=== PATIENT | female | born 1940 | race Caucasian/White ===

== ENCOUNTER 2018-11-29 09:47 | Day surgery (SDC) | payer OTHER ==
--- NOTE | 2018-11-28 10:48 | HP ---
HISTORY AND PHYSICAL: ADDENDUM: The patient is scheduled for surgery on 11/29/18. ALLERGIES: BACTRIM, LEVAQUIN, OXYBUTYNIN, PENICILLIN, SULFA, and VANCOMYCIN. RENETTA MIGUEL, MONOGRAM AND LETTER PASTER [id number]/[facility] #: [id number]
--- NOTE | 2018-11-28 11:22 | HP ---
CC: Dr. Stone* HISTORY AND PHYSICAL: DATE OF ADMISSION: 11/29/18 She is scheduled for surgery at [facility] for left arm arteriovenous anastomosis with graft. ATTENDING PHYSICIAN: Dr. Stone* (dictated by Nita Miguel NP). CHIEF COMPLAINT: End-stage renal failure. HISTORY OF PRESENT ILLNESS: Daniella Adam is a 77-year-old female who was referred from the [facility] in [place] for end-stage renal disease. She has been undergoing dialysis in [place]. She lives in a residential [facility]. She does have a temporary catheter in the right internal jugular. Her daughter is her power of trade mark attorney. Dr. Stone has discussed the nature and course of a right arm arteriovenous graft. It was felt that she would be the best candidate for a Wilson-Krunal arteriovenous graft from the brachial artery to the brachial vein towards the axilla. The patient is somewhat confused and her daughter will be contacted the day of the procedure to sign consent for surgery and anesthesia. PAST MEDICAL HISTORY: 1. Stage 5 renal disease. 2. Heart failure. 3. Chronic anemia. 4. Type 2 diabetes. 5. Dementia. 6. COPD. 7. Gastroesophageal reflux. MEDICATIONS: 1. Albuterol sulfate 0.083% inhaler nebulizer p.r.n. 2. Amlodipine besylate 10 mg p.o. daily. 3. She takes a daily 81 mg low-dose aspirin. 4. Atorvastatin calcium 10 mg daily. 5. Calcium acetate 667 mg p.o. daily for 90 days. 6. Famotidine 20 mg p.o. daily. 7. Hydralazine HCl 50 mg p.o. t.i.d. Sunday, , Sunday, Sunday and p.o. b.i.d. on Sunday, Sunday, Sunday. 8. Ipratropium bromide and albuterol sulfate inhaler. 9. Isosorbide dinitrate 20 mg p.o. t.i.d. Sunday, , Sunday, Sunday and p.o. b.i.d. on Sunday, Sunday, Sunday. 10. Metoprolol succinate ER 50 mg p.o. daily. 11. She takes a multivitamin, Nephro-Jessica 0.8 mg p.o. daily and Nephro-Jessica Rx 1 mg p.o. daily. 12. Senna-docusate sodium 8.6-50 mg p.o. b.i.d. p.r.n. 13. Trazodone HCl 50 mg p.o. q.h.s. 14. Tylenol 325 mg p.r.n. 15. Ventolin HFA 108 mcg/act inhalation aerosol p.r.n. ALLERGIES: BACTRIM, LEVAQUIN, OXYBUTYNIN, PENICILLIN, SULFA, and VANCOMYCIN. SOCIAL HISTORY: The patient lives in the [facility]. She does have a past history of tobacco use. REVIEW OF SYSTEMS: As noted in the past medical history. PHYSICAL EXAMINATION GENERAL: Daniella Adam is a 77-year-old female, comes to the office in a wheelchair, but uses a walker at the facility where she lives. VITAL SIGNS: Height 5 feet 2 inches, weight 132, blood pressure 107/44, BMI 24.1, pulse is 50, respirations 16. HEENT: Within normal limits. NECK: The patient has a right internal jugular dialysis catheter. CHEST: Lungs clear. HEART: S1 and S2. Regular rate and rhythm. No extra heart sounds. No murmurs , clicks, or rubs. ABDOMEN: Soft and nontender. Positive bowel sounds. Positive tympany. EXTREMITIES: +2 symmetrical radial pulses. IMPRESSION: End-stage renal disease, stage 5 with temporary dialysis catheter. PLAN: Same-day surgery admission to Dr. Stone's service for left arm arteriovenous anastomosis with graft. NITA MIGUEL NP [id number]/[facility] #: [id number]/[facility] #: [id number] NEAL
[~2018-11-29 09:47] MED LIST: Buffered Lidocaine 1% SYRIN* 1 ML/SYRINGE INTRADERM ONE; Lactated Ringers 1000 ML Bag* 1,000 ML IV SCH
[2018-11-29] MEDS ORDERED: Clindamycin 900 MG IVPREMIX(* 900 MG/50 ML SDV IV ONE (11:33)
[2018-11-29] MEDS ORDERED: Lidocaine 2% PF * 5 ML VIAL ONE (12:29)
[2018-11-29] MEDS ORDERED: Propofol* 10 MG/ML 20 ML BTL ONE (12:29)
[2018-11-29] MEDS ORDERED: Phenylephrine 10 MG/ML VIAL* 1 ML VIAL ONE (12:32)
[2018-11-29] MEDS ORDERED: Heparin DIALYSIS ONLY(*) 1,000 UNITS/ML VIAL ONE ×2 (12:36→12:50)
[2018-11-29] MEDS ORDERED: Lidocaine 1% INJ* 10 MG/ML 30 ML SDV ONE (12:37)
[2018-11-29] MEDS ORDERED: Bupivacaine 0.25% W/EPI* 10 ML SDV ONE (12:37)
[2018-11-29] MEDS ORDERED: Heparin 2 UNITS/ML IVPREMIX* 2,000 UNIT/1,000 ML BAG IV ONE (12:40)
[2018-11-29] MEDS ORDERED: Naloxone* 0.4 MG/ML 1 ML VIAL IV PRN (13:52)
[2018-11-29] MEDS ORDERED: Metoclopramide IV* 5 MG/ML 2 ML VIAL IV PRN (13:52)
[2018-11-29] MEDS ORDERED: fentaNYL* 50 MCG/ML 2 ML VIAL (100 MCG VIAL) IV PRN (13:52)
[2018-11-29] MEDS ORDERED: Dexamethasone IV* 4 MG/ML 1 ML (4 MG) ONE (14:59)
[2018-11-29] MEDS ORDERED: Ondansetron INJ* 2 MG/ML VIAL ONE (14:59)
[2018-11-29] MEDS ORDERED: oxyCODONE TAB* 5 MG TAB ONE ×2 (15:37→16:09)
[2018-11-29] MEDS: oxyCODONE TAB* 5 MG TAB PO PRN ×2 (15:38→16:11)
[2018-11-29 16:11] VITALS: BP 136/54
--- NOTE | 2018-11-30 00:04 | OP ---
OPERATIVE REPORT: DATE OF OPERATION: 11/29/18 DATE OF : 44 SURGEON: Gen Stone MD MAINFRAME APPLICATIONS DEVELOPER: Nita Mcconnell NP ANESTHESIA: General. PRE-OP DIAGNOSIS: End-stage renal disease. POST-OP DIAGNOSIS: End-stage renal disease. OPERATIVE PROCEDURE: Placement of arteriovenous graft (tapered Salisbury-Krunal Propaten). ESTIMATED BLOOD LOSS: Approximately 20 cc. DESCRIPTION OF PROCEDURE: The patient was taken to the procedure room. She was placed in the supine position after proper identification of the patient's site of surgery and we then [facility]. The patient was prepped and draped in the usual sterile fashio n exposing the left arm. After this was done, proper time-out was performed and we then proceeded to infiltrate lidocaine 1% on the medial aspect of the upper arm. A transverse incision was made in thi s area. The incision was carried down through the skin, subcutaneous tissue, fascia was opened and w e then proceeded to explore until the brachial vein was identified. This was then encircled in vesse l loops proximally and distally and after this was done, another incision was made right above the el bow. The incision was carried down through the skin, subcutaneous tissue. Bleeders were controlled b y electrocoagulation. The neurovascular bundle was identified in this area. The brachial artery was then exposed and this was encircled in vessel loops proximally and distally and after this was done, we then proceeded to map the tunnel in a curved shape going from the lower incision at the elbow tow ards the upper incision, towards the axilla with the graft going on the outside. The 4 mm tapers tow ards the artery and 6 mm to the venous side. After the mapping had been done and the tunnel was infi ltrated with Marcaine 0.25% and after this was done, we then proceeded to use a curved tunneler. Thi s was then introduced from the arterial incision in the lower part towards the venous incision in the upper part and after this was completed, we then proceeded to attach the arterial end of the graft t o the tip of the tunneler. It was then pulled back into the arterial area. The shaft of the tunnele r was then removed. We then proceeded to irrigate the graft with heparinized saline. The venous end of the graft was then cut with curved Zuniga's and after this was done, the patient received heparin 3 000 units and 5 minutes later, the vein was cross-clamped proximally and distally. A venotomy was the n performed with an 11 blade and extended with Pedraza scissors. After this was done, an end-to-side an astomosis was done with a parachute technique using 6-0 Prolene suture. After this was completed and the anastomosis was completed, we then proceeded to release the cross-clamp and proceeded to irrigat e from the arterial end of the graft with heparinized saline. Excellent flow was noted. We then pro ceeded to cross-clamp the graft and then we fashioned for the arterial anastomosis, a transverse inci maikel on the 4 mm end of the graft. After this was done, we then proceeded to cross-clamp the brachia l artery proximally and distally. An arteriotomy was performed with an #11 blade, which was then ext ended with Pedraza scissors. We then proceeded to perform an end-to-side anastomosis using 6-0 Prolene in a parachute technique and once this was completed, the venous clamp was released. The arterial c lamp distally was released and then the proximal. No bleeding was noted from the anastomosis. Good flow was noted through the graft. There was a palpable pulse in the radial and good capillary refill. There was a good thrill in the graft. No bleeding was noted at the site of the incisions. We then proceeded to close the incisions with 4-0 Vicryl for the subcutaneous tissue and the skin with a sub cuticular closure using 5-0 Monocryl and Steri-Strips. The patient tolerated the procedure well and she was taken in good condition to recovery room. [id number]/[facility] #: [id number]
== END 2018-11-29 17:02 | disposition home or self-care (01) ==
LOC: OR 09:47
PROVIDERS: ATTEND Surgery
DX: N18.6 End stage renal disease (principal); Z99.2 Dependence on renal dialysis; Z88.0 Allergy status to penicillin; Z88.8 Allergy status to other drugs, medicaments and biological substances; E11.21 Type 2 diabetes mellitus with diabetic nephropathy; J44.9 Chronic obstructive pulmonary disease, unspecified; D64.89 Other specified anemias; Z99.81 Dependence on supplemental oxygen
CPT/HCPCS: A9270-GY; C1768; J1100; J1644; J2405; J2704

== ENCOUNTER 2019-01-07 13:18 | Observation (INO) | payer OTHER, MEDICARE, MEDICAID ==
[2019-01-07] MEDS ORDERED: Buffered Lidocaine 1% SYRIN* 1 ML/SYRINGE INTRADERM ONE (13:40)
--- NOTE | 2019-01-07 13:44 | HP ---
HISTORY AND PHYSICAL: DATE OF ADMISSION: 01/07/19 CHIEF COMPLAINT: Infected left brachial graft. HISTORY OF PRESENT ILLNESS: The patient is a 78-year-old female, resident of a residential home in a [facility], who has a history of dementia and has endstage renal disease, the patient had a left brachial graft for hemodialysis on 11/29/18, the patient had a uneventful recovery; however, while she was in the skilled nursing started digging into the incision on the left arm. The incision became infected, which required drainage. The cultures reveal Staphylococcus aureus sensitive to cephalosporin. She was treated with oral antibiotics, and had a good response. The incision healed and 3 days ago, she was seen postoperatively as a followup and she was doing well. Today, she was brought in with severe left upper arm pain around the graft area with edema and tenderness to touch. Pain in the left forearm, but no edema. The patient has the graft being patent on examination and has again severe pain at the site of the graft in the entire left arm. Likely, this is a persistent recurrent infection of the left brachial graft. At this point, the best treatment option is to remove the infected graft and treat the patient with antibiotics. PAST MEDICAL HISTORY: The patient's past medical history is remarkable for endstage renal disease, heart failure, chronic anemia, type 2 diabetes, dementia , COPD, gastroesophageal reflux disease. MEDICATIONS: The patient's current medications include: 1. Albuterol inhaler 1 to 2 puffs as needed. 2. Amlodipine besylate 10 mg p.o. daily. 3. Aspirin 81 mg p.o. daily. 4. Atorvastatin 10 mg p.o. daily. 5. Calcium Acetate 667 mg p.o. every 90 days. 6. Famotidine 20 mg p.o. daily. 7. Hydralazine 50 mg p.o. t.i.d., Sunday, , Sunday and Sunday, and p.o. b.i.d. on Sunday, Sunday and Sunday. 8. Ipratropium bromide and albuterol inhaler as needed. 9. Isosorbide dinitrate 20 mg p.o. t.i.d. 10. Metoprolol ER 50 mg p.o. q.d. 11. She takes multivitamins, Nephro-Jessica 0.8 mg p.o. q.d. 12. Senna/docusate sodium 8.6/50 mg p.o. b.i.d. 13. Trazodone 50 mg p.o. q.h.s. 14. Tylenol 325 mg p.o. as needed. 15. Ventolin HFA 108 mcg aerosol as needed ALLERGIES: The patient has allergy history to BACTRIM, LEVAQUIN, OXYBUTYNIN, PENICILLIN, SULFA and VANCOMYCIN. SOCIAL HISTORY: The patient lives in a [facility]. PHYSICAL EXAMINATION GENERAL: The patient is alert and oriented in terms of her medical condition, but she has an underlying dementia. She states that she started to have pain today in the left arm, she had none yesterday. VITAL SIGNS: Height 62 inches, weight 132 pounds, blood pressure 98/61, pulse of 80, respirations 18. HEAD AND NECK: There is a dialysis catheter on the right internal jugular. LUNGS: Clear to auscultation bilaterally. HEART: Regular. ABDOMEN: Soft without any organomegaly. EXTREMITIES: The right upper arm is unremarkable. The left upper arm reveals edema around the graft with tenderness around the graft. Pain throughout the arm and decreased pulses distally in the left wrist. The most extreme tenderness is precisely around the graft area, where the infected incision was present. The lower extremities are essentially unremarkable. No edema. Excellent palpable pulses. DIAGNOSTIC IMPRESSION: Left brachial graft infection. After trying a course of antibiotics in the recurrence of pain at the level of the graft, the best option is to remove the brachial graft as this is acting as a foreign body. I have spoken to the daughter who is the power of family law attorney, her name is Cammie Kessler and I have explained the condition of her mother and she agrees to take her to surgery to remove the brachial graft. [id number]/[facility] #: [id number] MTDD
[2019-01-07] MEDS ORDERED: NS 0.45% 1000 ML BAG* 1,000 ML IV SCH (14:00)
[2019-01-07] MEDS ORDERED: fentaNYL* 50 MCG/ML 2 ML VIAL (100 MCG VIAL) ONE ×2 (14:10→15:55)
[2019-01-07] MEDS ORDERED: Midazolam* 1 MG/ML 2 ML VIAL (2 MG) ONE (14:11)
[2019-01-07] MEDS ORDERED: Morphine 4 MG/ML VIAL (1 ml) 4 MG/ML VIAL ONE (15:10)
[2019-01-07] MEDS ORDERED: Iohexol 180 (CONTRAST) 10 ML SDV IV ONE (15:31)
[2019-01-07] MEDS ORDERED: Lidocaine 1% INJ* 10 MG/ML 30 ML SDV ONE (15:31)
[2019-01-07] MEDS ORDERED: ceFAZolin 1 GM ADVAN(*) 1 GM ADDV.VIAL IVPB ONE (15:37)
[2019-01-07] MEDS ORDERED: Famotidine IV* 10 MG/ML 2 ML (20 mg) ONE (15:40)
[2019-01-07] MEDS ORDERED: Heparin 2 UNITS/ML IVPREMIX* 0 ML IV ONE (15:48)
[2019-01-07] MEDS ORDERED: Propofol* 10 MG/ML 20 ML BTL ONE (15:55)
[2019-01-07] MEDS ORDERED: Naloxone* 0.4 MG/ML 1 ML VIAL IV PRN (16:55)
[2019-01-07] MEDS ORDERED: Ondansetron INJ* 2 MG/ML VIAL IV PRN (16:55)
[2019-01-07] MEDS ORDERED: fentaNYL* 50 MCG/ML 2 ML VIAL (100 MCG VIAL) IV PRN (16:55)
[2019-01-07] MEDS ORDERED: Acetaminophen TAB* 325 MG PO PRN (19:02)
[2019-01-07] MEDS ORDERED: Morphine 4 MG/ML VIAL (1 ml) 4 MG/ML VIAL IV PRN (19:02)
[2019-01-07] MEDS ORDERED: Albuterol HFA INHALER* 8 gm MDI INH PRN (19:07)
[2019-01-07] MEDS: Metoprolol Tartrate TAB* 50 mg PO SCH (20:10)
[2019-01-07] MEDS: Isosorbide Dinitrate TAB* 20 MG PO SCH (20:10)
--- NOTE | 2019-01-07 22:07 | OP ---
DATE OF OPERATION: 01/07/19 - ROOM #349 DATE OF : 44 SURGEON: Gen Stone MD TOWER LOADER OPERATOR: Nita Mcconnell NP ANESTHESIA: General. PRE-OP DIAGNOSIS: Infected left brachial graft. POST-OP DIAGNOSIS: Infected left brachial graft. OPERATIVE PROCEDURE: Removal of infected infected brachial graft. ESTIMATED BLOOD LOSS: Less than 20 cc. INDICATIONS: The patient is a 78-year-old female with dementia, resident of a [facility] facility, who has end-stage renal disease, and on , underwent placement of the left brachial graft. The procedure was uneventful. In the postoperative period, 2 weeks after the operation, the patient was digging into the incision, opening the wound, and the patient developed Staphylococcus aureus infection in the area. This was treated by drainage and antibiotics. The patient responded very well and the incision started to heal. The incision in the opening completely healed and was doing well until today when she started complaining of severe pain and around the area of the graft with redness and edema. The pain was a 10/10 and when she was seen in the office, she was then immediately sent to the hospital for direct admission for removal of brachial graft, as the patient had then recurred with the same infection having a foreign body, infected and the degree of pain, it was felt the graft required to be removed. DESCRIPTION OF PROCEDURE: The patient was taken to the operating room. Proper identification of the patient and site of surgery was done. Consent for surgery was obtained from her daughter, who gave consent over the phone and was completely informed about the procedure, indications, and potential complications. Once the patient was on the general anesthesia, she was prepped and draped in the usual sterile fashion. Lidocaine 1% was used to infiltrate at the level of the lower incision of the graft in the medial aspect of the arm. The incision was carried down through skin, subcutaneous tissue. The tissues were edematous. The graft was easily found, which was not attached to the tissues and an indication that there was an active infection. No pus was found in the area. We then proceeded to clamp more proximal towards the brachial artery, clamped the graft, and proximal and distally divided the graft towards the brachial artery.The stump was then oversewn with 5-0 Prolene and a second incision towards the venous anastomosis was performed as well in the upper arm and this was then also divided in between clamps, the more proximal end was then oversewn to prevent bleeding. The body of the graft where the edema and infection was present was then pulled from the infected side, which came out easily without any effort, another indication that of an active infection was present. No bleeding was noted from any of the sites of the incisions. No oozing was noted from the tunnel and at this point, we then proceeded to close the incisions with interrupted vertical mattress using 3-0 Prolene sutures. Cultures of the tissue were taken at the beginning of the procedure. [id number]/[facility] #: [id number] NEAL
[2019-01-07] MEDS: oxyCODONE/Acetamin 5/325 MG* TAB PO PRN (22:42)
[2019-01-08] MEDS: ceFAZolin 1 GM* Q8H (AddVan) IVPB SCH ×4 (00:45→07:36)
[2019-01-08] MEDS: oxyCODONE/Acetamin 5/325 MG* TAB PO PRN (05:47)
[2019-01-08 07:42] VITALS: BP 138/81
[2019-01-08] MEDS: Metoprolol Tartrate TAB* 50 mg PO SCH (08:21)
[2019-01-08] MEDS: Isosorbide Dinitrate TAB* 20 MG PO SCH (08:21)
[2019-01-08] MEDS ORDERED: amLODIPine TAB* 5 MG PO SCH (09:00)
[2019-01-08] MEDS ORDERED: hydrALAZINE TAB* 25 MG PO SCH (09:00)
--- NOTE | 2019-01-08 10:24 | DS ---
DISCHARGE SUMMARY: DATE OF ADMISSION: 01/07/19 DATE OF DISCHARGE: 01/08/19 ADMITTING DIAGNOSIS: Infected left brachial graft. POST-OP DIAGNOSIS: Infected left brachial graft. HOSPITAL COURSE: The patient was urgently admitted to the hospital after she was seen in the office with severe pain in the left upper arm in the area where a brachial graft had been placed on 12/04/18. In the postoperative period because of the patient's dementia, she was digging into the incision, which created an infection that required drainage and cultures grew Staphylococcus aureus. This was treated as an outpatient with oral antibiotics and local wound care until it finally closed. The patient was seen in the office for followup The same day she was seen. She started to have severe pain and swelling again around the upper arm where the graft was located. It was felt that the graft itself was infected and at this point having the presence of a foreign body, it is necessary to remove the graft in order to avoid more potential problems. For this reason, the patient was sent as a direct admission from the office to the operating room for removal of the left brachial graft. The left brachial graft was removed uneventfully using light general anesthesia and local anesthesia. Postoperatively, the patient had minimal pain. Her blood pressure remained on the high side that is usual for her. This morning, the incisions appeared to be healing well. There is minimal edema at the site of surgery. The pain has improved significantly. There is still some incisional pain, but well managed. She has excellent capillary refill and Doppler signal at the radials and ulna. The patient is being transferred to the long-term facility. She should continue on Duricef 500 mg p.o. b.i.d. They should continue her dialysis via the right neck tunnel catheter and she should continue with the preoperative medications that she had prior to surgery. The patient is to return to our office for followup in 5 days. [id number]/[facility] #: [id number] NEAL
== END 2019-01-08 10:20 | disposition home or self-care (01) ==
LOC: OR 13:18 → SSU 18:31
PROVIDERS: ADMIT Surgery; ATTEND Surgery
DX: T82.7XXA Infection and inflammatory reaction due to other cardiac and vascular devices, implants and grafts, initial encounter (principal); F03.90 Unspecified dementia, unspecified severity, without behavioral disturbance, psychotic disturbance, mood disturbance, and anxiety; E11.22 Type 2 diabetes mellitus with diabetic chronic kidney disease; N18.6 End stage renal disease; Z99.2 Dependence on renal dialysis; Z79.82 Long term (current) use of aspirin; Z79.899 Other long term (current) drug therapy; K21.9 Gastro-esophageal reflux disease without esophagitis; J44.9 Chronic obstructive pulmonary disease, unspecified
CPT/HCPCS: 87070; 87071; 87073; 87077; 87186; 87205; 87640; 87641; 96365; A9270-GY; G0378; J0690; J1644; J2250; J2270; J2704; J3010